=== PATIENT | female | born 1960 | race Caucasian/White ===

== ENCOUNTER → 2021-03-09 | Outpatient (CLI) | payer OTHER ==
[~2021-03-09] MED LIST: ADULT LOW DOSE81 MG PO; LISINOPRIL2.5 MG PO; LOPRESSOR 12.12.5 MG PO; NITROSTAT0.4 MG SL; PLAVIX 75 MG TA75 MG PO; SIMVASTATIN40 MG PO; SPACERADULT
== END ==
LOC: M.RAD 12:02
DX: M25.531 Pain in right wrist (principal)